=== PATIENT | female | born 1945 | race Two or more races ===

== ENCOUNTER 2017-01-25 14:18 | Emergency (ER) | payer MEDICARE, OTHER ==
[~2017-01-25] VITALS: Ht 165.1 cm; Wt 74.8 kg
[~2017-01-25 14:18] MED LIST: DILAUDID4 MG PO; IBUPROFEN600 MG PO; MACROBID 100 M100 MG PO; MELOXICAM15 MG PO; NORCO 10-325 T1 EACH PO; NORCO 5-325 TA1 EACH PO; ORAL ANESTHETIC7 GM MM; PERCOCET 5-3251 EACH PO; XARELTO10 MG PO; ZOFRAN ODT4 MG SL
[2017-01-25] MEDS ORDERED: SIMVASTATIN20 MG PO (14:29)
[2017-01-25] MEDS ORDERED: IRON236 MG PO (14:30)
[2017-01-25] MEDS ORDERED: VITAMIN C250 MG PO (14:30)
--- NOTE | 2017-01-25 15:24 | EKG ---
[facility] [address] [facility] [place], [place] [address] Signed Normal sinus rhythm Normal ECG When compared with ECG of 29-DEC-2016 14:30, No significant change was found Confirmed by CANDACE FORBES MD ([id number]) on 01/25/2017 3:24:48 PM Electronically Signed By: CANDACE FORBES MD 01/25/17 1524 PATIENT NAME: SIMONA PALACIODES Electrocardiogram DATE OF : 49 PHYSICIAN: CANDACE FORBES MD REPORT #: [id number] REPORT IS CONFIDENTIAL AND NOT TO BE RELEASED WITHOUT AUTHORIZATION
== END 2017-01-25 16:32 | disposition home or self-care (01) ==
LOC: ED 14:18
DX: R53.1 Weakness (principal); Z86.73 Personal history of transient ischemic attack (TIA), and cerebral infarction without residual deficits; E78.00 Pure hypercholesterolemia, unspecified; Z88.8 Allergy status to other drugs, medicaments and biological substances; Z79.899 Other long term (current) drug therapy
CPT/HCPCS: 80053; 81001; 84484; 85025; 93005; 93010; 99284

== ENCOUNTER 2017-03-03 16:26 | Inpatient (IN) | payer MEDICARE, OTHER ==
[~2017-03-03] VITALS: Ht 165.1 cm; Wt 73.5 kg
[~2017-03-03 16:26] MED LIST changes: +IRON236 MG PO; +SIMVASTATIN20 MG PO; +VITAMIN C250 MG PO
[2017-03-16] MEDS ORDERED: ECOTRIN325 MG PO (17:29)
--- NOTE | 2017-03-18 07:06 | OR ---
[facility] [address] [place], [place] [address] Signed DATE OF PROCEDURE: 03/16/17 PREOPERATIVE DIAGNOSIS: End-stage osteoarthritis, left knee. POSTOPERATIVE DIAGNOSIS: End-stage osteoarthritis, left knee. PROCEDURE PERFORMED: Left total knee arthroplasty. SURGEON: Clement Mcneal MD ANESTHESIA: Spinal with sedation. SPECIMENS AND COMPLICATIONS: There were no specimens or complications. TOURNIQUET TIME: About 85 minutes. IMPLANTS Attune, size 6 narrow PS femur, a size 5 tibial tray, a 6 mm size 6 PS poly, and a 32 mm all poly patellar button. DESCRIPTION OF PROCEDURE The patient taken the operating room. After anesthesia was induced and airway secured, the patient was positioned, prepped and draped in a routine sterile fashion. The leg was exsanguinated with an Esmarch bandage. Pneumatic tourniquet about the thigh was inflated to 300 mmHg pressure. A straight anterior approach was made centered over the patella. Skin was divided sharply and subcutaneous tissue was bluntly spread. A small medial flap was created and an anteromedial arthrotomy performed. The patella was then everted and about 9 mm trimmed off the posterior aspect of the patella. It sized to a 32 mm patella and the drill holes were made for an all poly patella. We then snap-fit the trial patella onto the back and found that we had to r econstitute the pre-resection height of a 22 mm. We then removed the patellar trial and slid the patella into the lateral recess. Using the [employer] navigation system, we followed the protocol and digitized the proximal femur. We then resected the distal f emur at 11 mm because of her mild flexion contracture in neutral varus valgus and in about 3 degrees of posterior slope. We then removed the distal wafers. We then transitioned the navigation system to the proximal tibia and again followed the Dao protocol and digitized the proximal tibia. We then resected the proximal tibia in neutral varus valgus, 3 degrees of posterior slope per the Attune surgical protocol, and removed about 4 mm off the medial side. This was then resected with the oscillating saw and the tibial wafer was removed. We then sized the femur and it sized to a size 6. Size 7 clearly was going to have significant medial and Electronically Signed By: CLEMENT MCNEAL MD 03/18/17 0706 PATIENT NAME: JAYSON PALACIO OPERATIVE REPORT DATE OF : 49 PHYSICIAN: CLEMENT MCNEAL MD REPORT #: [id number] REPORT IS CONFIDENTIAL AND NOT TO BE RELEASED WITHOUT AUTHORIZATION [facility] [address] [place], [place] [address] Signed lateral overhang. We therefore placed the 4 in 1 size 6 cutting block on the distal femur and made the anterior, posterior, and chamfer cuts. The notch cutting block was placed and the notch was cut out. We then placed the lamina cotton agent in the joint and removed the remnants of the medial lateral meniscus, ACL, and PCL. We then placed the femoral trial on the distal femur, drilled the holes for the lugs on the femoral component, and placed a size 5 tibial tray on the tibia. We placed a 5 mm poly and then cycled the knee. We then corrected the rotational alignment of the tibial tray and marked it on the bone. We then flexed the knee, removed all the trials. The tibia was then prepared with a standard reamer and broach. The knee was then copiously irrigated, meticulously dried. The final components were then cemented into place and marginal cement was sought and removed. W e held the knee in full extension while the cement cured. After the cement cured, we again cycled the knee and following, could actually put a 6 mm poly with excellent stability in flexion and extension. We therefore copiously irrigated the knee, seated the final poly. Routine wound closure was accomplished and a sterile dressing applied. The patient was awakened and taken to the recovery room where arrived in stable condition. Counts were correct and antibiotic protocols were followed. MD JOSUE Spann/Devin /[id number] cc: Patricia Acevedo PA-C Electronically Signed By: CLEMENT MCNEAL MD 03/18/17 0706 PATIENT NAME: JAYSON PALACIO OPERATIVE REPORT DATE OF : 49 PHYSICIAN: CLEMENT MCNEAL MD REPORT #: [id number] REPORT IS CONFIDENTIAL AND NOT TO BE RELEASED WITHOUT AUTHORIZATION
[2017-03-18] MEDS ORDERED: DILAUDID4 MG PO (11:00)
[2017-03-18] MEDS ORDERED: OXYCODONE HCL5 MG PO (11:01)
[2017-03-18] MEDS ORDERED: XARELTO10 MG PO (11:01)
[2017-03-18] MEDS ORDERED: COLACE100 MG PO (11:02)
--- NOTE | 2017-03-23 07:08 | DS ---
[facility] [address] [place], [place] [address] Signed DATE OF DISCHARGE: 03/18/17 FINAL DIAGNOSIS At the time of discharge is end-stage osteoarthritis, left knee. PROCEDURE: Left total knee arthroplasty. ATTENDING PHYSICIAN: Maikel Davies MD. HISTORY OF PRESENT ILLNESS The patient is a 71-year-old female who presents complaining of pain in the left knee. We followed her in the office for some time and she no longer gets any significant relief from conservative modalities. She recently underwent a successful right total knee arthroplasty and has presented for elective left total knee arthroplasty. HOSPITAL COURSE She was admitted to Day Surgery on 03/16/2017. From Day Surgery, she was taken to the operating room where she underwent an uneventful left total knee arthroplasty using the ATTUNE system from [employer]. She had a size 6 narrow PS femur, a size 5 tibial tray, size 6 mm poly insert and a 32 mm patellar button. She did well intraoperatively without any complications. Postoperatively, she again has done quite well. On the second postoperative day, she has excellent pain control. She is alternating oral Dilaudid with oral OxyIR. She is eating well and has no nausea or vomiting. She did need a catheter at the first night, but it was pulled the first postoperative morning and she has been voiding without difficulty since. She has not yet had a bowel movement, however, we are continuing to give her some stool softeners. She has progressed rapidly through physical therapy and the physical therapist thinks she is independent at this time. PLAN Discharge her home. We will arrange for outpatient physical therapy three times a week for the next 6 weeks. She has a Dermabond dressing in place. We suggested she just leave it in place until it falls off its own accord. She is being discharged on Dilaudid 4 mg and oxycodone 5 mg to be taken every 4 hours alternatingly as needed for pain. She has been on Xarelto 10 mg 1 once a day for DVT prophylaxis and will continue it for another 4 weeks. We will also have her continue taking a stool softener. She can pursue a general diet and activity as she tolerates. Electronically Signed By: MAIKEL DAVIES MD 03/23/17 0708 PATIENT NAME: JAYSON PALACIO DISCHARGE SUMMARY DATE OF : 49 PHYSICIAN: MAIKEL DAVIES MD REPORT #: [id number] REPORT IS CONFIDENTIAL AND NOT TO BE RELEASED WITHOUT AUTHORIZATION [address] [address] Signed Maikel Davies MD WFB/Modl /[id number] cc: Patricia Acevedo PA-C Electronically Signed By: MAIKEL DAVIES MD 03/23/17 0708 PATIENT NAME: JAYSON PALACIO DISCHARGE SUMMARY DATE OF : 49 PHYSICIAN: MAIKEL DAVIES MD REPORT #: [id number] REPORT IS CONFIDENTIAL AND NOT TO BE RELEASED WITHOUT AUTHORIZATION
== END 2017-03-18 16:23 | disposition home or self-care (01) | DRG 470 ==
LOC: MS 03-16 05:50 → DSVR 03-16 05:50 → MS 03-16 06:45
PROVIDERS: ADMIT Orthopaedic Surgery
PROC: 0SRD0J9 Replacement of Left Knee Joint with Synthetic Substitute, Cemented, Open Approach (ICD-10-PCS; principal; 2017-03-16 06:45)
DX: M17.12 Unilateral primary osteoarthritis, left knee (principal); G89.18 Other acute postprocedural pain; Z96.651 Presence of right artificial knee joint; Z86.73 Personal history of transient ischemic attack (TIA), and cerebral infarction without residual deficits
CPT/HCPCS: 01402; 36415; 64447; 64450; 73560; 76942; 80048; 85025; 97110; 97116; C1713; C1776; J0690; J1100; J1170; J1885; J2250; J2274; J2370; J2405; J2550; J2704; J2765; J2795; J3010; J7120

== ENCOUNTER 2017-03-21 16:15 | Emergency (ER) | payer MEDICARE, OTHER ==
[~2017-03-21] VITALS: Ht 165.1 cm; Wt 73.5 kg
[~2017-03-21 16:15] MED LIST changes: +COLACE100 MG PO; +ECOTRIN325 MG PO; +OXYCODONE HCL5 MG PO
--- NOTE | 2017-03-21 21:02 | EKG ---
[facility] [address] [facility] [place], [place] [address] Signed Sinus tachycardia Otherwise normal ECG When compared with ECG of 25-JAN-2017 14:46, No significant change was found Confirmed by CANDACE FORBES MD ([id number]) on 03/21/2017 9:02:09 PM Electronically Signed By: CANDACE FORBES MD 03/21/172101 PATIENT NAME: SIMONA PALACIODES CALLE Electrocardiogram DATE OF : 49 PHYSICIAN: CANDACE FORBES MD REPORT #: [id number] REPORT IS CONFIDENTIAL AND NOT TO BE RELEASED WITHOUT AUTHORIZATION
== END 2017-03-21 18:55 | disposition home or self-care (01) ==
LOC: ED 16:15
DX: M96.840 Postprocedural hematoma of a musculoskeletal structure following a musculoskeletal system procedure (principal); R07.9 Chest pain, unspecified; E78.00 Pure hypercholesterolemia, unspecified; Z88.6 Allergy status to analgesic agent; Z79.82 Long term (current) use of aspirin; Z79.899 Other long term (current) drug therapy; Z86.73 Personal history of transient ischemic attack (TIA), and cerebral infarction without residual deficits
CPT/HCPCS: 71010; 71260; 80053; 84484; 85025; 85379; 93005; 93010; 99284; Q9967

== ENCOUNTER 2018-08-25 19:57 | Emergency (ER) | payer MEDICARE, OTHER ==
[~2018-08-25] VITALS: Ht 167.6 cm; Wt 75.3 kg
--- NOTE | 2018-08-25 23:39 | EKG ---
[facility] [address] [facility] [place], [place] [address] Signed Normal sinus rhythm Normal ECG When compared with ECG of 21-MAR-2017 16:54, No significant change was found Confirmed by CANDACE FORBES MD ([id number]) on 08/25/2018 11:39:26 PM Electronically Signed By: CANDACE FORBES MD 08/25/18 2339 PATIENT NAME: SIMONA PALACIODESIRE BETTENCOURTVEZ Electrocardiogram DATE OF : 49 PHYSICIAN: CANDACE FORBES MD REPORT #: [id number] REPORT IS CONFIDENTIAL AND NOT TO BE RELEASED WITHOUT AUTHORIZATION
== END 2018-08-25 22:38 | disposition home or self-care (01) ==
LOC: ED 19:57
DX: R41.0 Disorientation, unspecified (principal); E78.00 Pure hypercholesterolemia, unspecified; Z86.73 Personal history of transient ischemic attack (TIA), and cerebral infarction without residual deficits; Z88.6 Allergy status to analgesic agent; Z79.82 Long term (current) use of aspirin; Z79.899 Other long term (current) drug therapy; Z51.81 Encounter for therapeutic drug level monitoring
CPT/HCPCS: 70450; 80053; 81001; 85025; 85610; 85651; 85730; 93005; 93010; 99284-25; G0480

== ENCOUNTER 2018-11-10 07:10 | Day surgery (SDC) | payer MEDICARE, MEDICAID ==
[~2018-11-10] VITALS: Ht 165.1 cm; Wt 73.5 kg
[~2018-11-10 07:10] MED LIST changes: +CITALOPRAM HBR20 MG PO; +MOBIC15 MG PO
--- NOTE | 2018-11-10 08:55 | NUR ---
11/10/18 0855 Marisa,Cony 0877 PT ARRIVED TO PACU ON 5L VIA NC, RESP EVEN AND UNLABORED.
--- NOTE | 2018-11-10 10:42 | OR ---
[facility] [address] [place], [place] [address] Signed DATE OF OPERATION: 11/10/2018 SURGEON: Brian Huizar MD UPPER AND LOWER ENDOSCOPY REPORT PREOPERATIVE DIAGNOSES: 1. Epigastric abdominal pain. 2. Left lower quadrant abdominal pain. POSTOPERATIVE DIAGNOSES: 1. Ngri-vk-liwupwxj diffuse gastritis. 2. A 4 mm polyp at 10 cm. 3. Mild HOYOS diverticulosis. 4. Dissekf-wc-bplaenle internal hemorrhoids. PROCEDURES: 1. EGD with CLOtest and biopsies of the pyloric bulb, antrum and GE junction. 2. Colonoscopy with hot biopsy. ESTIMATED BLOOD LOSS: None. INDICATIONS: Jayson is a 73-year-old speaking lady who had come to the office for upper and lower endoscopy. Her comes with her to help her interpret. He is bilingual and does quite well. She has been having pain in her epigastric area and also in the left lower quadrant. Many years ago, in [facility], she went through a similar episode with upper and lower endoscopy. She cannot remember any details. To her knowledge, the tests were negative. She also says an hour or two after she eats she seems to have the pain. There is no family history of colon cancer or polyps. I gave Jayson and her pamphlets in Burundian and in Azerbaijani in the office regarding upper and lower endoscopy. We reviewed those together along with the risks including, but not limited to gas bloating, crampy abdominal pain, bleeding, perforation, requiring surgery, and missed diagnosis. We also gave her written instructions in both Burundian and Azerbaijani. She understands the bowel prep quite well. She also understands the need for IV conscious sedation. She had expressed understanding and wished to proceed. PROCEDURE NOTE: Jayson was taken into our endoscopy suite and placed in the supine semi-recumbent Electronically Signed By: BRIAN HUIZAR MD 11/10/18 1042 PATIENT NAME: JAYSON PALACIO OPERATIVE REPORT DATE OF : 49 REPORT #: [id number] PHYSICIAN: BRIAN HUIZAR MD PCP: MIKE YAN PAC REPORT IS CONFIDENTIAL AND NOT TO BE RELEASED WITHOUT AUTHORIZATION [facility] [address] [place], [place] [address] Signed position. The posterior oropharynx was anesthetized with lidocaine spray. A bite block was utilized for the case. A total of 5 mg of Versed and 125 mcg of fentanyl was utilized to cover both the upper and lower endoscopy. The adult gastroscope was introduced and advanced all the way out into the third portion of the duodenum under direct visualization of camera without difficulty. Her duodenum was unremarkable. There was possibly some mild inflammation in the pyloric bulb, but also mild inflammation diffusely in the stomach. Consequently, we took biopsies from the pyloric bulb antrum and the GE junction. We took a biopsy out of the antrum for CLOtest. Upon retroflexion of the scope, there was no evidence of any hiatal hernia. No gastric or esophageal varices. No duodenal or gastric ulcers. The scope was withdrawn up through the area of the GE junction, which was compliant without stricture. She had very minimal disruption to the Z-line. As a result, we did take a biopsy right at the GE junction. No Peguero's mucosa, no distal esophagitis. The middle and proximal esophagus were unremarkable. After this, the gas was suctioned out, the gastroscope removed. Jayson has tolerated the procedure quite well. Jayson was then rotated into the left lateral decubitus position. She was maintained on IV sedation with Versed and fentanyl. A digital rectal exam was performed and this was unremarkable. The adult colonoscope was then inserted and advanced under direct visualization of the camera into the cecum without difficulty. Her prep was quite good. She has moderate size diverticula throughout the colon. However, there are few in number. Pictures were taken throughout for photodocumentation. We saw just a small polyp in the rectum and it was easily removed with hot biopsy forceps. Upon retroflexion of scope, she does have minimal to moderate internal hemorrhoid columns. After this, the gas was suctioned out and colonoscope removed. Jayson tolerated the procedure quite well. RECOMMENDATIONS: I will see Jayson back in my office with her in the next 7-10 days to review her results. Brian Huizar MD ALB/MODL /[id number] Electronically Signed By: BRIAN HUIZAR MD 11/10/18 1042 PATIENT NAME: JAYSON PALACIO OPERATIVE REPORT DATE OF : 49 REPORT #: [id number] PHYSICIAN: BRIAN HUIZAR MD PCP: MIKE YAN PAC REPORT IS CONFIDENTIAL AND NOT TO BE RELEASED WITHOUT AUTHORIZATION [address] [address] Signed cc: CHET Abbott MD Copies: MIKE YAN ANDREW L MD ~ Electronically Signed By: BRIAN HUIZAR MD 11/10/18 1042 PATIENT NAME: JAYSON PALACIO OPERATIVE REPORT DATE OF : 49 REPORT #: [id number] PHYSICIAN: BRIAN HUIZAR MD PCP: MIKE YAN REPORT IS CONFIDENTIAL AND NOT TO BE RELEASED WITHOUT AUTHORIZATION
== END 2018-11-10 09:47 | disposition home or self-care (01) ==
LOC: OPS 07:10 → DS 07:10 → OPS 08:15
PROVIDERS: Colon & Rectal Surgery
PROC: 0DB78ZX Excision of Stomach, Pylorus, Via Natural or Artificial Opening Endoscopic, Diagnostic (ICD-10-PCS; 2018-11-10)
PROC: 0DB48ZX Excision of Esophagogastric Junction, Via Natural or Artificial Opening Endoscopic, Diagnostic (ICD-10-PCS; 2018-11-10)
PROC: 0DBP8ZX Excision of Rectum, Via Natural or Artificial Opening Endoscopic, Diagnostic (ICD-10-PCS; principal; 2018-11-10 08:15)
PROC: 0DB98ZX Excision of Duodenum, Via Natural or Artificial Opening Endoscopic, Diagnostic (ICD-10-PCS; 2018-11-10 08:15)
DX: K62.1 Rectal polyp (principal); K29.70 Gastritis, unspecified, without bleeding; K29.80 Duodenitis without bleeding; K29.50 Unspecified chronic gastritis without bleeding; K20.9 Esophagitis, unspecified; E78.00 Pure hypercholesterolemia, unspecified; K57.30 Diverticulosis of large intestine without perforation or abscess without bleeding; K64.8 Other hemorrhoids; Z88.6 Allergy status to analgesic agent; Z86.73 Personal history of transient ischemic attack (TIA), and cerebral infarction without residual deficits; Z79.82 Long term (current) use of aspirin; Z79.899 Other long term (current) drug therapy
CPT/HCPCS: 86677; 99153; G0500; J2250; J3010; J7120

== ENCOUNTER 2019-07-08 11:06 | Emergency (ER) | payer MEDICARE, MEDICAID ==
[~2019-07-08] VITALS: Ht 165.1 cm; Wt 73.5 kg
--- OUTSIDE RECORDS SUMMARY | ~2019-07-08 | XMS | Clinical Summary ---
Demographics + + + | Address | [address] | | | [place] [address] | + + + | Home Phone | | + + + | Preferred Language | Unknown | + + + | Marital Status | | + + + | Pentecostalism Affiliation | Unknown | + + + | Race | Unknown | + + + | Ethnic Group | Unknown | + + + Author + + + | Author | [facility] | | | and [place] | + + + | Organization | [facility] | | | and [place] | + + + | Address | Unknown | + + + | Phone | Unavailable | + + + Support + + +---------+ + | Name | Relationship | Address | Phone | + + +---------+ + | Cristina Alicea | ECON | Unknown | | + + +---------+ + | Cristina Alicea | ECON | Unknown | | + + +---------+ + Care Team Providers + +------+ + | Care Melt Superintendant Name | Role | Phone | + +------+ + PCP | Unavailable | + +------+ + Allergies Not on File Medications Not on file Active Problems Not on file Social History + +-------+ +--------+------+ | Tobacco Use | Types | Packs/Day | Years | Date | | | | | Used | | + +-------+ +--------+------+ | Never Assessed | | | | | + +-------+ +--------+------+ + + + | Sex Assigned at | Date Recorded | | | | + + + | Not on file | | + + + + + + + | Job Start Date | Occupation | Industry | + + + + | Not on file | Not on file | Not on file | + + + + + + + + | Travel History | Travel Start | Travel End | + + + + + + | No recent travel history available. | + + Last Filed Vital Signs Not on file Plan of Treatment + + + + + | Health Maintenance | Due Date | Last Done | Comments | + + + + + | Vaccine: | | | | | Dtap/Tdap/Td (1 - | 8 | | | | Tdap) | | | | + + + + + | Vaccine: Zoster (1 | | | | | of 2) | 7 | | | + + + + + | Breast Cancer | | | | | Screening | 2 | | | + + + + + | Vaccine: | | | | | Pneumococcal 65+ (1 | 2 | | | | of 2 - PCV13) | | | | + + + + + | Vaccine: Influenza | | | | | (#1) | 9 | | | + + + + + Results Not on filefrom Last 3 Months"
--- OUTSIDE RECORDS SUMMARY | ~2019-07-08 | XMS | Encounter Summary ---
Demographics + + + | Address | [address] | | | [place] [address] | + + + | Home Phone | | + + + | Preferred Language | Unknown | + + + | Marital Status | | + + + | Mosque Affiliation | Unknown | + + + | Race | Unknown | + + + | Ethnic Group | Unknown | + + + Author + + + | Author | [facility] | | | and [place] | + + + | Organization | [facility] | | | and [place] [...] Team Providers + +------+ + | Care Diversified Crops Supervisor Name | Role | Phone | + +------+ + PCP | Unavailable | + +------+ + Encounter Details +--------+ + + + + | Date | Type | Department | Care Team | Description | +--------+ + + + + | 02/03/ | Hospital | [facility] | Syed Macedo, | | | 2011 | Encounter | [facility] | [address] | | | | | [address] [place] | [place], [place] | | | | | [place], [place] | [address] | | | | | [address] | | | | | | [phone] | | | +--------+ + + + + Social History + +-------+ +--------+------+ | Tobacco [...] recent travel history available. | + + documented as of this encounter Plan of Treatment Not on filedocumented as of this encounter Procedures + +--------+ + + + | Procedure Name | Priori | Date/Time | Associated Diagnosis | Comments | | | ty | | | | + +--------+ + + + | UA, MICROSCOPIC, | Routin | 02/04/2012 | | Results for this | | REFLEX | e | 11:19 AM | | procedure are in the | | | | PDT | | results section. | + +--------+ + + + | URINALYSIS, REFLEX | Routin | 02/04/2012 | | Results for this | | MICROSCOPIC AND/OR | e | 11:19 AM | | procedure are in the | | CULTURE | | PDT | | results section. | + +--------+ + + + documented in this encounter Results UA, Microscopic, Reflex (02/04/2012 11:19 AM PDT) + +-------+ + + + | Component | Value | Ref Range | Performed | Pathologist | | | | | At | Signature | + +-------+ + + + | WBC UA | 0-2 | 0 - 1 /hpf | [facility] | | [facility] | [facility] | | | | | | [facility] - | | | | | | LABORATORY | | + +-------+ + + + | RBC UA | 0-2 | 0 - 4 /hpf | [facility] | | [facility] | | | | | | [facility] | | | | | | C[facility] - | | | | | | LABORATORY | | + +-------+ + + + | SQUAMOUS | RARE | FEW /hps | [facility] | | | EPITHELIAL | | | [facility] | | | [facility] | | | MEDICAL | | | | | | CENTER - | | | | | | LABORATORY | | + +-------+ + + + | BACTERIA UA | RARE | NONE /hpf | [facility] | | | | [facility] | | | | | | [facility]ICAL | | | | | | CENTER - | | | | | | LABORATORY | | + +-------+ + + + | Culture | NO | | [facility] | | | Indicated | | | [facility] | | | | | | [facility] | | | | | | CENTER - | | | | | | LABORATORY | | + +-------+ + + + + + | Specimen | + + | | + + + + + + + | Performing | Address | City/State/Zipcode | Phone Number | | Organization | | | | + + + + + | [facility] | [address] | [place], [place] | [phone] | | [facility] | | [address] | | | - LABORATORY | | | | + + + + + | [facility] | [address] | [place], [place] | | | [facility] | | [address] | | | - LABORATORY | | | | + + + + + Urinalysis, Reflex Microscopic and/or Culture (02/04/2012 11:19 AM PDT) + + + + + + | Component | Value | Ref Range | Performed | Pathologist | | | | | At | Signature | + + + + + + | COLLECTION | CL.CATCH | | [facility] | | | [facility] | | [facility] | | | | | | MEDICAL | | | | | | CENTER - | | | | | | LABORATORY | | + + + + + + | Color | YELLOW | | [facility] | | | | | [facility] | | | | | | [facility]ICAL | | | | | | CENTER - | | | | | | LABORATORY | | + + + + + + | Clarity | CLEAR | | [facility] | | | | | [facility] | | | | | | [facility] | | | | | | CENTER - | | | | | | LABORATORY | | + + + + + + | Glucose, | NEGATIVE | NEGATIVE mg/dL | [facility] | | | Urine | | | [facility] | | | | | | MEDICAL | | | | | | CENTER - | | | | | | LABORATORY | | + + + + + + | Bilirubin, | NEGATIVE | NEGATIVE | [facility] | | | Urine | | | [facility] | | | | | | MEDICAL | | | | | | CENTER - | | | | | | LABORATORY | | + + + + + + | Ketones, | NEGATIVE | NEGATIVE | [facility] | | | Urine | | | [facility] | | | | | | MEDICAL | | | | | | CENTER - | | | | | | LABORATORY | | + + + + + + | Specific | 1.015 | 1.001 - 1.030 | [facility] | | | [place] | | | [facility] | | | | | | MEDICAL | | | | | | CENTER - | | | | | | LABORATORY | | + + + + + + | Blood, | TRACE-LYSED | NEGATIVE | [facility] | | | Urine | | | [facility] | | | | | | MEDICAL | | | | | | CENTER - | | | | | | LABORATORY | | + + + + + + | pH, Urine | 6.5 | 5.0 - 8.0 | [facility] | | | | | | [facility] | | | | | | MEDICAL | | | | | | CENTER - | | | | | | LABORATORY | | + + + + + + | Protein, | NEGATIVE | NEGATIVE mg/dL | [facility] | | | Urine | | | [facility] | | | | | | MEDICAL | | | | | | CENTER - | | | | | | LABORATORY | | + + + + + + | Urobilinoge | NORMAL | NORMAL EU/dL | [facility] | | | n, Urine | | | [facility] | | | | | | MEDICAL | | | | | | CENTER - | | | | | | LABORATORY | | + + + + + + | Nitrite, | NEGATIVE | NEGATIVE | [facility] | | | Urine | | | [facility] | | | | | | MEDICAL | | | | | | CENTER - | | | | | | LABORATORY | | + + + + + + | Leukocyte | NEGATIVE | NEGATIVE | [facility] | | | Esterase, | | | [facility] | | | Urine | | | MEDICAL | | | | | | CENTER - | | | | | | LABORATORY | | + + + + + + | MICROSCOPIC | YES | | [facility] | | | ? | | | [facility] | | | | | | MEDICAL | | | | | | CENTER - | | | | | | LABORATORY | | + + + + + + + + | Specimen | + + | | + + + + + + + | Performing | Address | City/State/Zipcode | Phone Number | | Organization | | | | + + + + + | [facility] | [address] | [place], [place] | [phone] | | [facility] | | [address] | | | - LABORATORY | | | | + + + + + | [facility] | [address] | [place], [place] | | | [facility] | | [address] | | | - LABORATORY | | | | + + + + + documented in this encounter Visit Diagnoses Not on filedocumented in this encounter"
--- OUTSIDE RECORDS SUMMARY | ~2019-07-08 | XMS | Encounter Summary ---
Demographics + + + | Address | [address] | | | [place] [address] | + + + | Home Phone | | + + + | Preferred Language | Unknown | + + + | Marital Status | Unknown | + + + | Pentecostal Affiliation | Unknown | + + + | Race | Unknown | + + + | Ethnic Group | Unknown | + + + Author + + + | Author | [facility] | + + + | Organization | [facility] | + + + | Address | Unknown | + + + | Phone | Unavailable | + + + Care Team Providers + +------+ + | Care Movie Extra Name | Role | Phone | + +------+ + PCP | Unavailable | + +------+ + Encounter Details +--------+ + + + + | Date | Type | Department | Care Team | Description | +--------+ + + + + | 06/27/ | Documentati | Neurology at | Clinic, Neurology | | | 2011 | on | [facility] & | | | | | | [facility] [address] | | | | | | Thomas Esqueda Mailcode: | | | | | | [address] [facility] | | | | | | Health and Healing, | | | | | | Building | | | | | | Floor [place], [place] | | | | | | [address] | | | | | | [phone] | | | +--------+ + + + [...] Not on filedocumented as of this encounter Visit Diagnoses Not on filedocumented in this encounter"
--- OUTSIDE RECORDS SUMMARY | ~2019-07-08 | XMS | Clinical Summary ---
Demographics + + + | Address | [address] | | | [place] [address] | + + + | Home Phone | | + + + | Preferred Language | Unknown | + + + | Marital Status | Unknown | + + + | Lutheran Affiliation | Unknown | + + + | Race | Unknown | + + + | Ethnic Group | Unknown | + + + Author + + + | Author | [facility] | + + + | Organization | [facility] | + + + | Address | Unknown | + + + | Phone | Unavailable | + + + Care Team Providers + +------+ + | Care Pump And Still Operator Name | Role | Phone | + +------+ + PCP | Unavailable | + +------+ + Source Comments [facility] is fully live on both [facility] Ambulatory and [facility] InPatient.[facility] Allergies Not on File Medications Not on [...] | + + + + + | Pneumococcal | | | | | vaccination (1 of 2 | 2 | | | | - PCV13) | | | | + + + + + | Influenza (Flu) | | | | | vaccination (#1) | 9 | | | + + + + + Results Not on filefrom Last 3 Months"
--- OUTSIDE RECORDS SUMMARY | ~2019-07-08 | XMS | Encounter Summary ---
Demographics + + + | Address | [address] | | | [place] [address] | + + + | Home Phone | | + + + | Preferred Language | Unknown | + + + | Marital Status | Unknown | + + + | Congregational Affiliation | Unknown | + + + | Race | Unknown | + + + | Ethnic Group | Unknown | + + + Author + + + | Author | [facility] | + + + | Organization | [facility] | + + + | Address | Unknown | + + + | Phone | Unavailable | + + + Care Team Providers + +------+ + | Care Batch Analyst Name | Role | Phone | + +------+ + PCP | Unavailable | + +------+ + Encounter Details +--------+ + + + + | Date | Type | Department | Care Team | Description | +--------+ + + + + | 07/04/ | Documentati | Neurology at | Clinic, Neurology | | | 2011 | on | [facility] & | | | | | | [address] | | | | | | [place] Mailcode: | | | | | | [address] [facility] | | | | | | Health and Healing, | | | | | | Building | | | | | | Floor [place], [place] | | | | | | [address] | | | | | | [phone] | | | +--------+ + + + [...]
--- OUTSIDE RECORDS SUMMARY | ~2019-07-08 | XMS | Clinical Summary ---
Demographics + + + | Address | [address] | | | [place] [address] | + + + | Home Phone | | + + + | Preferred Language | Unknown | + + + | Marital Status | Unknown | + + + | Adventism Affiliation | Unknown | + + + | Race | Unknown | + + + | Ethnic Group | Unknown | + + + Author + + + | Author | [facility] | + + + | Organization | [facility] | + + + | Address | Unknown | + + + | Phone | Unavailable | + + + Care Team Providers + +------+ + | Care Stenotype Machine Operator Name | Role | Phone | + +------+ + PCP | Unavailable | + +------+ + Source Comments UMM is fully live on both [facility] Amb[facility] and [facility] InPatient.[facility] Allergies Not on File Medications Not on [...]
--- OUTSIDE RECORDS SUMMARY | ~2019-07-08 | XMS | Clinical Summary ---
Demographics + + + | Address | [address] | | | [place] [address] | + + + | Home Phone | | + + + | Preferred Language | Unknown | + + + | Marital Status | | + + + | Faith Affiliation | Unknown | + + + | Race | Unknown | + + + | Ethnic Group | Unknown | + + + Author + + + | Author | [facility] | | | and Fr[place] | + + + | Organization | [facility] | | | and Fr[place]iscoana | [...] Team Providers + +------+ + | Care Automatic Fabric Cutter Name | Role | Phone | + [...]
--- OUTSIDE RECORDS SUMMARY | ~2019-07-08 | XMS | Encounter Summary ---
Demographics + + + | Address | [address] | | | [place] [address] | + + + | Home Phone | | + + + | Preferred Language | Unknown | + + + | Marital Status | Unknown | + + + | Restorationist Affiliation | Unknown | + + + | Race | Unknown | + + + | Ethnic Group | Unknown | + + + Author + + + | Author | [facility] | + + + | Organization | [facility] | + + + | Address | Unknown | + + + | Phone | Unavailable | + + + Care Team Providers + +------+ + | Care Antique Furniture Restorer Name | Role | Phone | + +------+ + PCP | Unavailable | + +------+ + Encounter Details +--------+ + + + + | Date | Type | Department | Care Team | Description | +--------+ + + + + | 06/27/ | Documentati | Neurology at | Clinic, Neurology | | | 2011 | on | [facility] & | | | | | | [address] | | | | | | [place] Mailcode: | | | | | | [facility] | | | | | | Health and Healing, | | | | | | Building | | | | | | Floor [place], [place] | | | | | | [address] | | | | | | [phone] | | | +--------+ + + + [...]
--- OUTSIDE RECORDS SUMMARY | ~2019-07-08 | XMS | Encounter Summary ---
Demographics + + + | Address | [address] | | | [place] [address] | + + + | Home Phone | | + + + | Preferred Language | Unknown | + + + | Marital Status | | + + + | Temple Affiliation | Unknown | + + + | Race | Unknown | + + + | Ethnic Group | Unknown | + + + Author + + + | Author | [facility] | | | and [place] | + + + | Organization | [facility] | | | and Fr[place]iscoana [...] Team Providers + +------+ + | Care Gas Singer Name | Role | Phone | + +------+ + PCP | Unavailable | + +------+ + Encounter Details +--------+ + + + + | Date | Type | Department | Care Team | Description | +--------+ + + + + | 02/02/ | Hospital | [facility] | Julieta Barahona, | | | 2011 | Encounter | MED CTR LAB[facility]ATORY | MD [address] | | | | | [address] [place] | [address] [place] | | | | | [place], [place] | [place] [address] | | | | | [address] | [phone] | | | | | [phone] | | | +--------+ + + + [...] + | UA, MICROSCOPIC, | Routin | 02/03/2012 | | Results for this | | REFLEX | e | 11:16 AM | | procedure are in the | | | | PDT | | results section. | + +--------+ + + + | URINALYSIS, REFLEX | Routin | 02/03/2012 | | Results for this | | MICROSCOPIC AND/OR | e | 11:16 AM | | procedure are in the | | CULTURE | | PDT | | results section. | + +--------+ + + + | LACTATE | Routin | 02/03/2012 | | Results for this | | DEHYDROGENASE | e | 11:06 AM | | procedure are in the | | | | PDT | | results section. | + +--------+ + + + | CK TOTAL | Routin | 02/03/2012 | | Results for this | | | e | 11:06 AM | | procedure are in the | | | | PDT | | results section. | + +--------+ + + + | RENAL FUNCTION PANEL | Routin | 02/03/2012 | | Results for this | | | e | 11:06 AM | | procedure are in the | | | | PDT | | results section. | + +--------+ + + + | US RENAL LIMITED | | 02/03/2012 | | Results for this | | | | 10:46 AM | | procedure are in the | | | | PDT | | results section. | + +--------+ + + + documented in this encounter Results UA, Microscopic, Reflex (02/03/2012 11:16 AM PDT) + + + + + + | Component | Value | Ref Range | Performed | Pathologist | | | | | At | Signature | + + + + + + | WBC UA | 0-2Comment: MICROSCOPIC | 0 - 1 /hpf | [facility] | | | | DONE ON LOW VOLUME | | [facility] | | | | URINE. (7ML) | | MEDICAL | | | | | | CENTER - | | | | | | LABORATORY | | + + + + + + | RBC UA | 0-2 | 0 - 4 /hpf | [facility] | | | | | | [facility] | | | | | | MEDICAL | | | | | | CENTER - | | | | | | LABORATORY | | + + + + + + | SQUAMOUS | FEW | FEW /hps | [facility] | | | EPITHELIAL | | | [facility] | | | UA | | | MEDICAL | | | | | | CENTER - | | | | | | LABORATORY | | + + + + + + | BACTERIA UA | MANY | NONE /hpf | [facility] | | | | | | [facility] | | | | | | MEDICAL | | | | | | CENTER - | | | | | | LABORATORY | | + + + + + + | MUCUS UA | LARGE | /hpf | [facility] | | | | | | [facility] | | | | | | MEDICAL | | | | | | CENTER - | | | | | | LABORATORY | | + + + + + + | Culture | NO [...] | + + + + + | [facility] [facility] | [address] | [place], [place] | [phone] | | [facility] | | [address] | | | - LABORATORY | | | | + + + + + | [facility] | [address] | [place], [place] | | | [facility] | | [address] | | | - LABORATORY | | | | + + + + + Urinalysis, Reflex Microscopic and/or Culture (02/03/2012 11:16 AM PDT) + + + + + [...] + + + + | Clarity | HAZY | | [facility] | | | | [...] + + + + | Ketones, | TRACE | NEGATIVE | [facility] | | | Urine | | | [facility] | | | | | | MEDICAL | | | | | | CENTER - | | | | | | LABORATORY | | + + + + + + | Specific | >=1.030 | 1.001 - 1.030 | [facility] | | | [place] | | | [facility] | | [...] + + + | pH, Urine | 6.0 | 5.0 - 8.0 | [facility] | | | | | | [facility] | | | | | | MEDICAL | | | | | | CENTER - | | | | | | LABORATORY | | + + + + + + | Protein, | TRACE | NEGATIVE mg/dL | [facility] | | [...] + + + + | Nitrite, | POSITIVE | NEGATIVE | [facility] | | | Urine | | | [facility] | | | | | | MEDICAL | | | | | | CENTER - | | | | | | LABORATORY | | + + + + + + | Leukocyte | TRACE | NEGATIVE | [facility] | | | [...] + | [facility] | [address] | [place] | [phone] | | [facility] | | [address] | | | - LABORATORY | | | | + + + + + | [facility] [facility] | [address] | [place] | | | [facility] | | [address] | | | - LABORATORY | | | | + + + + + Renal Function Panel (02/03/2012 11:06 AM PDT) + + + + + + | Component | Value | Ref Range | Performed | Pathologist | | | | | At | Signature | + + + + + + | Glucose | 108 | 70 - 109 mg/dL | [facility] | | | | | | [facility] | | | | | | MEDICAL | | | | | | CENTER - | | | | | | LABORATORY | | + + + + + + | Calcium | 10.0 | 8.3 - 10.5 | [facility] | | | | | mg/dL | [facility] | | | | | | MEDICAL | | | | | | CENTER - | | | | | | LABORATORY | | + + + + + + | Phosphorus | 2.5 | 2.5 - 4.6 mg/dL | [facility] | | | | | | [facility] | | | | | | MEDICAL | | | | | | CENTER - | | | | | | LABORATORY | | + + + + + + | Albumin | 4.2 | 3.2 - 5.0 gm/dL | [facility] | | | | | | DEV | | | | | | MEDICAL | | | | | | CENTER - | | | | | | LABORATORY | | + + + + + + | BUN | 14 | 7 - 18 mg/dL | [facility] | | | | | | [facility] | | | | | | MEDICAL | | | | | | CENTER - | | | | | | LABORATORY | | + + + + + + | Creatinine | 0.78 | 0.60 - 1.30 | [facility] | | | | | mg/dL | [facility] | | | | | | MEDICAL | | | | | | CENTER - | | | | | | LABORATORY | | + + + + + + | Estimated | >60Comment: For | >60 mL/min/A | [facility] | | | GFR | -Americans, | | [facility] | | | | please multiply the | | MEDICAL | | | | result by 1.210 | | CENTER - | | | | This is an estimated | | LABORATORY | | | | GFR and is based on a | | | | | | standard adult | | | | | | body mass (A=1.73m2) and | | | | | | serum creatinine | | | | + + + + + + | BUN/Creatin | 17.9 | 12 - 20 | [facility] | | | ine Ratio | | | [facility] | | | | | | MEDICAL | | | | | | CENTER - | | | | | | LABORATORY | | + + + + + + | Na | 138 | 136 - 149 mEq/L | [facility] | | | | | | [facility] | | | | | | MEDICAL | | | | | | CENTER - | | | | | | LABORATORY | | + + + + + + | K | 4.1 | 3.5 - 5.1 mEq/l | [facility] | | | | | | [facility] | | | | | | MEDICAL | | | | | | CENTER - | | | | | | LABORATORY | | + + + + + + | Cl | 110 (H) | 98 - 109 mEq/l | [facility] | | | | | | [facility] | | | | | | MEDICAL | | | | | | CENTER - | | | | | | LABORATORY | | + + + + + + | CO2 | 23 (L) | 24 - 31 mEq/L | [facility] | | | | | | [facility] | | | | | | MEDICAL | | | | | | CENTER - | | | | | | LABORATORY | | + + + + + + | Anion Gap | 9.1 | 6.0 - 17.0 | [facility] | | | | | [...] | + + + + + | [facility] | [address] | [place] | [phone] | | [facility] | | [address] | | | - LABORATORY | | | | + + + + + | [facility] | [address] | [place], [place] | | | [facility] | | [address] | | | - LABORATORY | | | | + + + + + Lactate Dehydrogenase (02/03/2012 11:06 AM PDT) + +-------+ + + + | Component | Value | Ref Range | Performed | Pathologist | | | | | At | Signature | + +-------+ + + + | LDH TOTAL | 139 | 91 - 180 IU/L | [facility] | | | | | | [facility] | | | | | | MEDICAL | | | | | | CENTER - | | | | | | LABORATORY | | + +-------+ + + + + + | Specimen | + + | | + + + + + + + | Performing | Address | City/State/Unm Cancer Centercode | Phone Number | | Organization | | | | + + + + + | [facility] | [address] | [place] | [phone] | | [facility] | | [address] | | | - LABORATORY | | | | + + + + + | [facility] | [address] | [place] | | | [facility] | | [address] | | | - LABORATORY | | | | + + + + + CK Total (02/03/2012 11:06 AM PDT) + +-------+ + + + | Component | Value | Ref Range | Performed | Pathologist | | | | | At | Signature | + +-------+ + + + | CK TOTAL | 57 | 22 - 269 IU/L | [facility] | | | | | | [facility] | | | | | | MEDICAL [...] + | [facility] | [address] | [place], [place] | [phone] | | [facility] | | [address] | | | - LABORATORY | | | | + + + + + | [facility] | [address] | [place], [place] | | | [facility] | | [address] | | | - LABORATORY | | | | + + + + + US Renal Limited (02/03/2012 10:46 AM PDT) + + | Specimen | + + | | + + + + + | Narrative | Performed At | + + + | [facility] Diagnostic Imaging Department | [facility] | | [address] | [facility] | | RENAL ULTRASOUND: 02/03/2012 | DIAG IMG | | CLINICAL HISTORY: BILATERAL FLANK PAIN AND HEMATURIA, FOLLOWUP | | | LEFT RENAL ABNORMALITY SEEN ON PREVIOUS CT. COMPARISON: CT | | | abdomen 01/27/2012, 01/18/2012, and 01/02/2005, all from [place] | | | [facility] in [place], [place]. FINDINGS: The right kidney | | | measures 10.1 x 4.0 x 3.8 cm and the left kidney measures 9.2 x 4.0 | | | x 4.8 cm. A lobulated region of decreased echogenicity is noted in | | | the superior, medial aspect of the left kidney. No internal | | | vascularity is visible in this region on Doppler interrogation, | | | although there is vascularity along the margins. There is mild | | | left renal pelvocaliectasis, which corresponds with that visible on | | | comparison CT. The right kidney is normal in appearance, without | | | collecting system dilation. Resistive indices measure up to 0.72 | | | on the right and 0.69 on the left. The bladder is unremarkable | | | in contour and appearance. A post void residual volume of 3 mL is | | | calculated. Bilateral ureteral jets are observed during the study. | | | IMPRESSION: 1. LOBULATED REGION OF DECREASED ECHOGENICITY | | | IN THE SUPERIOR, MEDIAL LEFT KIDNEY IN A REGION OF PREVIOUSLY | | | DESCRIBED RENAL PERFUSION ABNORMALITY. THIS APPEARANCE COULD BE | | | SEEN IN THE SETTING OF AN EVOLVING SEGMENTAL RENAL INFARCT ALTHOUGH | | | DEVELOPING RENAL ABSCESS COULD HAVE THIS APPEARANCE WELL. | | | CLINICAL AND LABORATORY CORRELATION IS ADVISED, ALONG WITH | | | CONSIDERATION FOR INTERVAL CT FOLLOWUP. 2. PERSISTENT MILD | | | LEFT RENAL PELVOCALIECTASIS. 3. NORMAL SONOGRAPHIC APPEARANCE | | | OF THE RIGHT KIDNEY. COMMENT: RESULTS OF THIS STUDY WERE | | | DISCUSSED WITH DR. BARAHONA AT THE TIME OF INTERPRETATION ON | | | 02/03/2012. Dictated Date/Time: 02/03/2012 14:08 Transcribed | | | Date/Time: 02/03/2012 14:18 Revenue Cycle Analyst: | | | <Electronically Signed by Hermelindo Alex MD> 02/03/12 2212 | | + + + + + | Procedure Note | + + | Darius, Rad Conversion - 08/25/2013 5:43 PM [facility] | | Diagnostic Imaging Department | | [address] | | | | | | | | RENAL ULTRASOUND: 02/03/2012 | | | | CLINICAL HISTORY: BILATERAL FLANK PAIN AND HEMATURIA, FOLLOWUP LEFT RENAL | | ABNORMALITY SEEN ON PREVIOUS CT. | | | | COMPARISON: CT abdomen 01/27/2012, 01/18/2012, and 01/02/2005, all from . | | [facility] in [place], [place]. | | | | FINDINGS: The right kidney measures 10.1 x 4.0 x 3.8 cm and the left kidney | | measures 9.2 x 4.0 x 4.8 cm. A lobulated region of decreased echogenicity is | | noted in the superior, medial aspect of the left kidney. No internal | | vascularity is visible in this region on Doppler interrogation, although there | | is vascularity along the margins. There is mild left renal pelvocaliectasis, | | which corresponds with that visible on comparison CT. The right kidney is | | normal in appearance, without collecting system dilation. Resistive indices | | measure up to 0.72 on the right and 0.69 on the left. | | | | The bladder is unremarkable in contour and appearance. A post void residual | | volume of 3 mL is calculated. Bilateral ureteral jets are observed during the | | study. | | | | IMPRESSION: | | 1. LOBULATED REGION OF DECREASED ECHOGENICITY IN THE SUPERIOR, MEDIAL LEFT | | KIDNEY IN A REGION OF PREVIOUSLY DESCRIBED RENAL PERFUSION ABNORMALITY. THIS | | APPEARANCE COULD BE SEEN IN THE SETTING OF AN EVOLVING SEGMENTAL RENAL INFARCT | | ALTHOUGH DEVELOPING RENAL ABSCESS COULD HAVE THIS APPEARANCE WELL. CLINICAL | | AND LABORATORY CORRELATION IS ADVISED, ALONG WITH CONSIDERATION FOR INTERVAL CT | | FOLLOWUP. | | | | 2. PERSISTENT MILD LEFT RENAL PELVOCALIECTASIS. | | | | 3. NORMAL SONOGRAPHIC APPEARANCE OF THE RIGHT KIDNEY. | | | | COMMENT: RESULTS OF THIS STUDY WERE DISCUSSED WITH DR. BARAHONA AT THE TIME OF | | INTERPRETATION ON 02/03/2012. | | | | Dictated Date/Time: 02/03/2012 14:08 | | Transcribed Date/Time: 02/03/2012 14:18 | | Revenue Cycle Analyst: | | <Electronically Signed by Hermelindo Alex MD> 02/03/12 2212 | + + + +---------+ + + | Performing | Address | City/State/Zipcode | Phone Number | | Organization | | | | + +---------+ + + | [facility] | | | | | [facility] | | | | + +---------+ + + documented in this encounter Visit Diagnoses Not on filedocumented in this encounter"
--- OUTSIDE RECORDS SUMMARY | ~2019-07-08 | XMS | Encounter Summary ---
Demographics + + + | Address | [address] | | | [place] [address] | + + + | Home Phone | | + + + | Preferred Language | Unknown | + + + | Marital Status | | + + + | Mormonism Affiliation | Unknown | + + + | Race | Unknown | + + + | Ethnic Group | Unknown | + + + Author + + + | Author | [facility] | | | and Fr[place]iscoana | + + + | Organization | [facility] | | | and Fransiscoana [...] Team Providers + +------+ + | Care Agricultural Service Worker Name | Role | Phone | + +------+ + PCP | Unavailable | + +------+ + Encounter Details +--------+ + + + + | Date | Type | Department | Care Team | Description | +--------+ + + + + | 02/02/ | Hospital | [facility] | Julieta Barahona, | | | 2011 | Encounter | MED CTR LAB[facility]ATORY | MD [address] | | | | | [address] [place] | [address] [place] | | | | | [place], [place] | [place] [address] | | | | | [address] | [phone] | | | | | [phone] | | | +--------+ + + + [...] + | [facility] | [address] | [place], [place] | [phone] | | [facility] | | [address] | | | - LABORATORY | | | | + + + + + | [facility] | [address] | [place], [place] | | | [facility] | | [address] | | | - LABORATORY | | [...] - 1.030 | [facility] | | | [place] | | | [facility] | | [...] [address] | [place] | [phone] | | [facility] | | [address] | | | - LABORATORY | | | | + + + + + | [facility] [facility] | [address] | [place] | | | [facility] | | [address] | | | - LABORATORY | | [...] 14 | 7 - 18 mg/dL | [facility] | | | | | | [facility] | | | | | | MEDICAL | | | | | | CENTER - | | | | | | LABORATORY | | + + + + + + | Creatinine | 0.78 | 0.60 - 1.30 | [facility] | | | | | mg/dL | [facility] | | | | | | MEDICAL | | | | | | CENTER - | | | | | | LABORATORY | | + + + + + + | Estimated | >60Comment: For | >60 mL/min/A | [facility] | | | GFR | -Americans, [...] + | [facility] | [address] | [place] | [phone] | | [facility] | | [address] | | | - LABORATORY | | | | + + + + + | [facility] | [address] | [place], [place] | | | [facility] | | [address] | | | - LABORATORY | | [...] | | | | | | [facility] | | | | | | MEDICAL | | | | | | CENTER - | | | | | | LABORATORY | | + +-------+ + + + + + | Specimen | + + | | + + + + + + + | Performing | Address | City/State/[facility] Health Cliniccode | Phone Number | | Organization | | | | + + + + + | [facility] | [address] | [place] | [phone] | | [facility] | | [address] | | | - LABORATORY | | | | + + + + + | [facility] | [address] | [place] | | | [facility] | | [address] | | | - LABORATORY | | [...] [facility] | | | | | | [facility] | | | | | [...] + | [facility] | [address] | [place], [place] | [phone] | | [facility] | | [address] | | | - LABORATORY | | | | + + + + + | [facility] | [address] | [place], [place] | | | [facility] | | [address] | | | - LABORATORY | | | | + + + + + US Renal Limited (02/03/2012 10:46 AM PDT) + + | Specimen | + + | | + + + + + | Narrative | Performed At | + + + | [facility] Diagnostic Imaging Department | [facility] | | [address] | [facility] | | RENAL ULTRASOUND: 02/03/2012 | DIAG IMG | | CLINICAL HISTORY: BILATERAL FLANK PAIN AND HEMATURIA, FOLLOWUP | | | LEFT RENAL ABNORMALITY SEEN ON PREVIOUS CT. COMPARISON: CT | | | abdomen 01/27/2012, 01/18/2012, and 01/02/2005, all from [place] | | | [facility] in [place], [place]. FINDINGS: The right kidney | | [...] Transcribed | | | Date/Time: 02/03/2012 14:18 Patient Carrier: | | | <Electronically Signed by Hermelindo Alex MD> 02/03/12 2212 | | + + + + + | Procedure Note | + + | Darius, Rad Conversion - 08/25/2013 5:43 PM [facility] | | Diagnostic Imaging Department | | [address] | | | | | | | | RENAL ULTRASOUND: 02/03/2012 | | | | CLINICAL HISTORY: BILATERAL FLANK PAIN AND HEMATURIA, FOLLOWUP LEFT RENAL | | ABNORMALITY SEEN ON PREVIOUS CT. | | | | COMPARISON: CT abdomen 01/27/2012, 01/18/2012, and 01/02/2005, all from . | | [facility] in [place], [place]. | | | | FINDINGS: The [...] | Transcribed Date/Time: 02/03/2012 14:18 | | Patient Carrier: | | <Electronically Signed by Hermelindo Alex [...]
--- OUTSIDE RECORDS SUMMARY | ~2019-07-08 | XMS | Encounter Summary ---
Demographics + + + | Address | [address] | | | [place] [address] | + + + | Home Phone | | + + + | Preferred Language | Unknown | + + + | Marital Status | Unknown | + + + | Pentecostalism Affiliation | Unknown | + + + | Race | Unknown | + + + | Ethnic Group | Unknown | + + + Author + + + | Author | [facility] | + + + | Organization | [facility] | + + + | Address | Unknown | + + + | Phone | Unavailable | + + + Care Team Providers + +------+ + | Care Molder Vacuum Name | Role | Phone | + +------+ + PCP | Unavailable | + +------+ + Encounter Details +--------+ + + + + | Date | Type | Department | Care Team | Description | +--------+ + + + + | 07/04/ | Documentati | Neurology at | Clinic, Neurology | | | 2011 | on | [facility] & | | | | | | [facility] [address] | | | | | | [address]queda Mailcode: | | | | | | [facility] | | | | | | Health and Healing, | | | | | | Building | | | | | | Floor [place], [place] | | | | | | [address] | | | | | | [phone] | | | +--------+ + + + [...]
--- OUTSIDE RECORDS SUMMARY | ~2019-07-08 | XMS | Encounter Summary ---
Demographics + + + | Address | [address] | | | [place] [address] | + + + | Home Phone | | + + + | Preferred Language | Unknown | + + + | Marital Status | | + + + | Rastafari Affiliation | Unknown | + + + | Race | Unknown | + + + | Ethnic Group | Unknown | + + + Author + + + | Author | [facility] | | | and [place] | + + + | Organization | [facility] | | | and [place]iscoana [...] Team Providers + +------+ + | Care Safe And Vault Installer Name | Role | Phone | + +------+ + PCP | Unavailable | + +------+ + Encounter Details +--------+ + + + + | Date | Type | Department | Care Team | Description | +--------+ + + + + | 02/03/ | Hospital | [facility] | Syed Macedo, | | | 2011 | Encounter | [facility] | [address] | | | | | [address] [place] | [place], [place] | | | | | [place], [place] | [address] | | | | | [address] | | | | | | [phone] | | | +--------+ + + + [...] + | [facility] | [address] | [place], [place] | [phone] | | [facility] | | [address] | | | - LABORATORY | | | | + + + + + | [facility] | [address] | [place], [place] | | | [facility] | | [address] | | | - LABORATORY | | [...] - 1.030 | [facility] | [address] | | | [facility] | | [...] + | [facility] | [address] | [place], [place] | [phone] | | [facility] | | [address] | | | - LABORATORY | | | | + + + + + | [facility] | [address] | [place], [place] | | | [facility] | | [address] | | | - LABORATORY | | | | + + + + + documented in this encounter Visit Diagnoses Not on filedocumented in this encounter"
== END 2019-07-08 12:29 | disposition home or self-care (01) ==
LOC: ED 11:06
DX: S83.91XA Sprain of unspecified site of right knee, initial encounter (principal); S20.212A Contusion of left front wall of thorax, initial encounter; W01.198A Fall on same level from slipping, tripping and stumbling with subsequent striking against other object, initial encounter; Z86.73 Personal history of transient ischemic attack (TIA), and cerebral infarction without residual deficits
CPT/HCPCS: 71101; 73560; 99283-25